=== PATIENT | male | born 1955 | race Caucasian/White ===

== ENCOUNTER 2017-11-09 13:41 | Emergency (ER) | payer BC ==
--- NOTE | 2017-11-09 14:33 | Emergency Department Record ---
History of Present Illness - General Chief Complaint: Syncope Stated Complaint: SYNCOPY Time Seen by Provider: 11/09/17 14:23 Source: Patient Mode of Arrival: Ambulatory - History of Present Illness Initial Comments: patient was sitting in a chair and talking on the phone about his heart valve surgery and and he felt funny and than passed out and no trauma and he was shaking and out for 30 seconds and than awake and he came in for evaluation. No pain no chest pain and no dyspnea no abdominal pain. sister said he had some shaking Onset/Timin -: Minutes(s) Prodromal Symptoms: Other Duration of Episode: 10 -: Second(s) - [place] Coma Scale Eye Response: (4) Open spontaneously Motor Response: (6) Obeys commands Verbal Response: (5) Oriented John Total: 15 - Related Data Home Medications Medication Instructions Recorded Confirmed Last Taken Atorvastatin Calcium [Lipitor] 80 mg PO DAILY 11/09/17 11/09/17 11/09/17 Carvedilol [Carvedilol] 1 tab PO DAILY 11/09/17 11/09/17 11/09/17 Ezetimibe [Ezetimibe] 1 tab PO DAILY 11/09/17 11/09/17 11/09/17 Lisinopril [Zestril] 5 mg PO DAILY 11/09/17 11/09/17 11/09/17 Allergies Allergy/AdvReac Type Severity Reaction Status Date / Time No Known Drug Allergies Allergy Verified 11/09/17 14:00 Travel Screening - Travel/Exposure Within Last 30 Days Have you traveled within the last 30 days?: No - Travel/Exposure Within Last Year Have you traveled outside the [place] in the last year?: Yes Location Detail:: [place] July 2017 - Additonal Travel Details Have you been exposed to anyone with a communicable illness?: No - Travel Symptoms Symptom Screening: None Review of Systems Reviewed: No additional complaints except as noted below Constitutional: Reports: As per HPI. Denies: Chills, Fever, Malaise, Night sweats, Weakness, Weight change Eyes: Reports: As per HPI. Denies: Eye discharge, Eye pain, Photophobia, Vision change ENT: Reports: As per HPI. Denies: Congestion, Dental pain, Ear pain, Epistaxis , Hearing loss, Throat pain Respiratory: Reports: As per HPI. Denies: Cough, Dyspnea, Hemoptysis, Stridor, Wheezes Cardiovascular: Reports: As per HPI. Denies: Arrhythmia, Chest pain, Dyspnea on exertion, Edema, Murmurs, Orthopnea, Palpitations, Paroxysmal nocturnal dyspnea, Rheumatic Fever, Syncope Endocrine: Reports: As per HPI. Denies: Fatigue, Heat or cold intolerance, Polydipsia, Polyuria Gastrointestinal: Reports: As per HPI. Denies: Abdominal pain, Constipation, Diarrhea, Hematemesis, Hematochezia, Melena, Nausea, Vomiting Genitourinary: Reports: As per HPI. Denies: Dysuria, Frequency, Hematuria, Incontinence, Retention, Testicular pain, Testicular mass, Urgency Musculoskeletal: Reports: As per HPI. Denies: Arthralgia, Back pain, Gout, Joint swelling, Myalgia, Neck pain Skin: Reports: As per HPI. Denies: Bruising, Change in color, Change in hair/ nails, Lesions, Pruritus, Rash Neurological: Reports: As per HPI. Denies: Abnormal gait, Confusion, Headache, Numbness, Paresthesias, Seizure, Tingling, Tremors, Vertigo, Weakness Psychiatric: Reports: As per HPI. Denies: Anxiety, Auditory hallucinations, Depression, Homicidal thoughts, Suicidal thoughts, Visual hallucinations Hematological/Lymphatic: Reports: As per HPI. Denies: Anemia, Blood Clots, Easy bleeding, Easy bruising, Swollen glands Past Medical History - SOCIAL HISTORY Smoking Status: Never smoker Alcohol Use: Rare Drug Use: None - RESPIRATORY Hx Respiratory Disorders: No - CARDIOVASCULAR Hx Cardio Disorders: Yes Hx Cardiac Cath: Yes Hx Heart Attack: Yes (2013) Hx Hypertension: Yes Comment:: stents - NEURO Hx Neuro Disorders: No - GI Hx GI Disorders: No - Hx Genitourinary Disorders: No - ENDOCRINE Hx Endocrine Disorders: No - MUSCULOSKELETAL Hx Musculoskeletal Disorders: No - PSYCH Hx Psych Problems: No - HEMATOLOGY/ONCOLOGY Hx Hematology/Oncology Disorders: No Family Medical History Any Significant Family History?: No Physical Exam - General General Appearance: Alert, Oriented x3, Cooperative, No acute distress - Head Head exam: Normal inspection - Eye Eye exam: Normal appearance, PERRL Pupils: Normal accommodation - ENT ENT exam: Normal exam, Mucous membranes moist, Normal external ear exam, Normal orophraynx, TM's normal bilaterally Ear exam: Normal external inspection. negative: External canal tenderness Nasal Exam: Normal inspection. negative: Discharge, Sinus tenderness Mouth exam: Normal external inspection, Tongue normal Teeth exam: Normal inspection. negative: Dental caries Throat exam: Normal inspection. negative: Tonsillar erythema, Tonsillar exudate - Neck Neck exam: Normal inspection, Full ROM. negative: Tenderness - Respiratory Respiratory exam: Normal lung sounds bilaterally. negative: Respiratory distress - Cardiovascular Cardiovascular Exam: Regular rate, Normal rhythm, Systolic murmur - GI/Abdominal GI/Abdominal exam: Soft, Normal bowel sounds. negative: Tenderness - Rectal Rectal exam: Deferred - exam: Deferred - Extremities Extremities exam: Normal inspection, Full ROM, Normal capillary refill. negative: Tenderness - Back Back exam: Reports: Normal inspection, Full ROM. Denies: Muscle spasm, Rash noted, Tenderness - Neurological Neurological exam: Alert, Normal gait, Oriented X3, Reflexes normal - Psychiatric Psychiatric exam: Normal affect, Normal mood - Skin Skin exam: Dry, Intact, Normal color, Warm Course Vital Signs 11/09/17 13:50 Temperature 98.7 F Pulse Rate 62 Respiratory 18 Rate Blood Pressure 172/102 Pulse Ox 98 - Reevaluation(s) Reevaluation #1: discussed case with Dr. Ailyn JONES cardiology and will transfer to [facility] 11/09/17 16:29 Medical Decision Making - Lab Data Result diagrams: 11/09/17 14:00 11/09/17 14:00 Disposition Clinical Impression: Syncope Qualifiers: Syncope type: unspecified Qualified Code(s): R55 - Syncope and collapse Disposition: Acute Care Hospital Transfer Condition: (2) Stable Forms: Patient Portal Access Time of Disposition: 16:29 Quality - Quality Measures Quality Measures: N/A - Blood Pressure Screening Does Patient Have Any of the Following: No Blood Pressure Classification: Hypertensive Reading Systolic Measurement: 172 Diastolic Measurement: 102 Screening for High Blood Pressure: < First Hypertensive BP, F/U Documented > [ G8950] First Hypertensive Follow-up Interventions: Referral to alternative/primary care provider.
[2017-11-09 14:55] LABS: BASO % 0.7 % (0-6); GRAN % 59.6 % (47-80); HEMATOCRIT 48.6 % (42.0-52.0); HEMOGLOBIN 16.6 gm/dl (14.0-18.0); LYMPH % 23.2 % (16-45); MEAN CORPUSCULAR HEMOGLOBIN 31.1 pg (27-33); MEAN CORPUSCULAR HGB CONC 34.2 g/dl (32-36); MEAN PLATELET VOLUME 10.3 fl (7.4-10.4); MONO % 12.5 % (0-9); PLATELET COUNT 260 K/uL (130-400); RED BLOOD COUNT 5.34 M/uL (4.40-5.70)
[2017-11-09 15:08] LABS: BLOOD UREA NITROGEN 16 mg/dL (8-23); CREATININE 0.7 mg/dL (0.7-1.2); EST GLOMERULAR FILTRATION RATE > 60 mL/min
[2017-11-09 15:11] LABS: GLUCOSE,RANDOM 103 mg/dL (74-109)
[2017-11-09 15:16] LABS: CKMB 5.4 ng/mL (<6.73)
--- NOTE | 2017-11-11 10:10 | CT SCAN REPORT ---
DATE: 11/09/2017 at 2:48 p.m. EXAM: HEAD CT. HISTORY: Syncope, possible seizure. TECHNIQUE: Axial CT scan of the head was performed without intravenous contrast. COMPARISON: None. FINDINGS: No definite acute intracranial hemorrhage identified. No focal mass effect or midline shift apparent. No definite acute infarct or intracranial mass lesion is seen. No depressed calvarial fracture is evident. Particularly if this represents a new onset of seizures, follow-up brain MRI may be useful for further evaluation if not contraindicated. Minor membrane thickening anteriorly in the inferior aspect of the left maxillary sinus. IMPRESSION: EMERGENCY NONCONTRAST HEAD CT APPEARS ESSENTIALLY NEGATIVE WITH NO DEFINITE ACUTE INTRACRANIAL HEMORRHAGE OR FOCAL MASS EFFECT IDENTIFIED. JOB NUMBER: [id number] [facility]
== END 2017-11-09 19:02 | disposition short-term general hospital (02) ==
LOC: ER 13:41
DX: R55 Syncope and collapse (principal); I10 Essential (primary) hypertension; I25.2 Old myocardial infarction
CPT/HCPCS: 70450; 80048; 82553; 83735; 84484; 85025; 85730; 99285

== ENCOUNTER 2018-07-01 09:35 | Emergency (ER) | payer BC ==
[2018-07-01] MEDS ORDERED: 0.9 % SODIUM CHLORIDE 1,000 ML BAG IV ONE (10:13)
[2018-07-01] MEDS ORDERED: ONDANSETRON HCL IV 4 MG/2 ML VIAL IV ONE (10:13)
--- NOTE | 2018-07-01 10:17 | Emergency Department Record ---
History of Present Illness - General Chief complaint: Rectal bleeding Stated complaint: RECTAL BLEEDING Time Seen by Provider: 07/01/18 10:06 Source: Patient Mode of Arrival: Ambulatory Limitations: No limitations - History of Present Illness Initial comments: The patient is here due to having cramping AP with frequent small diarrheal stools with a small amount of blood for the last 24 hours approximately. He has recently had mild nausea but no abdominal pain or vomiting or fevers. The bleeding is described as about a teaspoon of blood with the stools. The patient denies any dizziness or lightheadedness and has no hx of GI bleeding. MD complaint: Blood streaked stool Onset/Timin -: Hour(s) Radiation: Epigastric, Suprapubic Severity scale (1-10): 8 Quality: Cramping Consistency: Constant Associated Symptoms: Abdominal pain, Diarrhea, Nausea Treatments Prior to Arrival: OTC meds - Related Data Previous Rx's Medication Instructions Recorded Ciprofloxacin HCl [Cipro] 500 mg PO Q12HR #14 tablet 07/01/18 Metronidazole [Flagyl] 500 mg PO TID #21 tablet 07/01/18 Ondansetron [Zofran Odt] 4 mg SL .Q4-6H PRN #12 tab.rapdis 07/01/18 Allergies Allergy/AdvReac Type Severity Reaction Status Date / Time No Known Drug Allergies Allergy Verified 11/09/17 14:00 Travel Screening - Travel/Exposure Within Last 30 Days Have you traveled within the last 30 days?: No - Travel/Exposure Within Last Year Have you traveled outside the [place] in the last year?: No - Additonal Travel Details Have you been exposed to anyone with a communicable illness?: No - Travel Symptoms Symptom Screening: None Review of Systems Constitutional: Denies: Chills, Fever Eyes: Denies: Eye discharge ENT: Denies: Congestion Respiratory: Denies: Cough, Dyspnea Cardiovascular: Denies: Arrhythmia Endocrine: Denies: Fatigue Gastrointestinal: Reports: Diarrhea, Hematochezia, Nausea. Denies: Abdominal pain, Vomiting Genitourinary: Denies: Dysuria Musculoskeletal: Denies: Arthralgia Skin: Denies: Bruising Past Medical History - SOCIAL HISTORY Smoking Status: Never smoker Alcohol Use: Rare Drug Use: None - RESPIRATORY Hx Respiratory Disorders: No - CARDIOVASCULAR Hx Cardio Disorders: Yes Hx Cardiac Cath: Yes Hx Heart Attack: Yes (2013) Hx Hypertension: Yes Comment:: stents - NEURO Hx Neuro Disorders: No - GI Hx GI Disorders: No - Hx Genitourinary Disorders: No - ENDOCRINE Hx Endocrine Disorders: No - MUSCULOSKELETAL Hx Musculoskeletal Disorders: No - PSYCH Hx Psych Problems: No - HEMATOLOGY/ONCOLOGY Hx Hematology/Oncology Disorders: No Family Medical History Any Significant Family History?: No Physical Exam - General General Appearance: Alert, Oriented x3, Cooperative, No acute distress - Head Head exam: Atraumatic, Normocephalic, Normal inspection - Eye Eye exam: Normal appearance, PERRL - ENT Throat exam: Normal inspection. negative: Tonsillar erythema, Tonsillar exudate - Neck Neck exam: Normal inspection, Full ROM. negative: Tenderness - Respiratory Respiratory exam: Normal lung sounds bilaterally. negative: Respiratory distress - Cardiovascular Cardiovascular Exam: Regular rate, Normal rhythm, Normal heart sounds - GI/Abdominal GI/Abdominal exam: Soft, Normal bowel sounds. negative: Tenderness - Rectal Rectal exam: Heme (+) stool, Normal inspection, Normal rectal tone. negative: Prostate enlargement, Prostate tenderness - Extremities Extremities exam: Normal inspection. negative: Pedal edema - Back Back exam: Reports: Normal inspection - Neurological Neurological exam: Alert, Normal gait. negative: Abnormal gait, Motor sensory deficit Course Vital Signs 07/01/18 09:48 Temperature 97.9 F Pulse Rate 94 H Respiratory 24 Rate Blood Pressure 182/125 Pulse Ox 99 - Reevaluation(s) Reevaluation #1: The patient is doing a lot better at this time. His pain is almost gone and he is no longer having any bright red bleeding with his stools. 07/01/18 12:04 Reevaluation #2: The patient is doing very well at this time. His pain is gone and he states he is no longer bleeding. I did explain to him the need to stay in the hospital for IV Abx's and monitoring but he is refusing that plan. I explained to him that by leaving his colitis could get worse and he could bleed worse and develop a worsening colon infection, sepsis, become disabled and even . The patient understands and accepts the risks. He presently has proper decision making capacity and is competent to refuse. 07/01/18 13:09 Reevaluation #3: The patient is doing well and denies any pain or discomfort. He again is refusing to stay in the hospital overnight. I did discuss the case with Dr. Garcia and he can see the patient in the office in 1 or 2 days. We also are trying to set the patient up for an appointment in the [facility] for . 07/01/18 13:40 Medical Decision Making - Data Complexity MDM Data: Labs Ordered and/or Reviewed, X-Ray Ordered and/or Reviewed - Lab Data Result diagrams: 07/01/18 10:07 07/01/18 10:07 - Radiology Data Radiology results: Report reviewed (CT: Long segment of circumferential wall thickening with inflammatory fat stranding from distal transverse colon to rectum. Nonspecific colitis, Poss inflammatory vs infectious.) Disposition Disposition: Discharge Clinical Impression: Colitis Disposition: Against Medical Advice Condition: (2) Stable Instructions: Colitis (ED) Additional Instructions: Please drink plenty of fluids and eat a very bland diet. Use Zofran for nausea and take Tylenol for pain. Take Cipro and Flagyl as directed and see Dr. Garcia tomorrow for recheck and Dr. Kwok in the [facility] on . Return to the ER for any worsening symptoms of pain, bleeding, or any fever. Prescriptions: Ciprofloxacin HCl [Cipro] 500 mg PO Q12HR #14 tablet Metronidazole [Flagyl] 500 mg PO TID #21 tablet Ondansetron [Zofran Odt] 4 mg SL .Q4-6H PRN #12 tab.rapdis PRN Reason: Nausea Referrals: [facility] [Provider Group] Forms: Patient Portal Access Time of Disposition: 13:45 Quality - Quality Measures Quality Measures: N/A - Blood Pressure Screening View Details: Yes Does Patient Have Any of the Following: Active Dx of HTN Blood Pressure Classification: Hypertensive Reading Systolic Measurement: 141 Diastolic Measurement: 98 Screening for High Blood Pressure: Patient Exclusion, Hx of HTN [G9744]
[2018-07-01 10:47] LABS: BASO % 0.3 % (0-6); EOS % 1.6 % (0-6); GRAN % 76.6 % (47-80); HEMATOCRIT 51.4 % (42.0-52.0); HEMOGLOBIN 17.3 gm/dl (14.0-18.0); LYMPH % 13.4 % (16-45); MEAN CORPUSCULAR HEMOGLOBIN 30.6 pg (27-33); MEAN CORPUSCULAR HGB CONC 33.7 g/dl (32-36); MEAN PLATELET VOLUME 10.3 fl (7.4-10.4); MONO % 8.1 % (0-9); PLATELET COUNT 295 K/uL (130-400); RED BLOOD COUNT 5.65 M/uL (4.40-5.70); RED CELL DISTRIBUTION WIDTH 14.1 % (11.5-14.5); WHITE BLOOD COUNT W/O DIFF 9.3 K/uL (4.2-12.2)
[2018-07-01] MEDS ORDERED: MAGNESIUM HYDROXIDE/AL HYDROX 30 ML, LIDOCAINE VISC 2% 15ML 15 ML PO ONE ×2 (11:03)
[2018-07-01 11:05] LABS: BLOOD UREA NITROGEN 14 mg/dL (8-23); EST GLOMERULAR FILTRATION RATE > 60 mL/min
[2018-07-01 11:06] LABS: TOTAL PROTEIN 7.1 g/dL (6.6-8.7)
[2018-07-01 11:08] LABS: GLUCOSE,RANDOM 135 mg/dL (74-109)
[2018-07-01 11:11] LABS: ALBUMIN 4.7 g/dL (4.0-5.0); ALKALINE PHOSPHATASE 93 U/L (40-129); ALT/SGPT 21 U/L (<41); AST/SGOT 19 U/L (10.0-50.0); LIPASE 218 U/L (13-60)
[2018-07-01 11:22] LABS: BILIRUBIN,DIRECT < 0.2 mg/dL (0-0.3)
[2018-07-01] MEDS ORDERED: ERTAPENEM SODIUM 1 G in 0.9 % SODIUM CHLORIDE 100ML 100 ML IVPB ONE (13:00)
--- NOTE | 2018-07-02 08:39 | CT SCAN REPORT ---
EXAM: CT OF THE ABDOMEN AND PELVIS WITH CONTRAST HISTORY: SEVERE ABDOMINAL PAIN, RECTAL BLEEDING. TECHNIQUE: CT of the abdomen and pelvis with 100 ml Omnipaque 300 intravenous contrast and oral contrast was provided. Comparison: Abdomen ultrasound 01/21/13. FINDINGS: The visualized lung bases are clear. Unremarkable appearance of the liver, gallbladder, spleen, adrenal glands, and pancreas. Symmetric renal perfusion. No hydronephrosis. Long segment of circumferential colonic wall thickening extending from the distal transverse colon to the rectum. Oral contrast material extends to the level of the rectum. Somewhat rounded hyperdense material within a segment of jejunum in the left mid abdomen (series 3 image 91, series 601 image 48) measuring up to 15 mm. No free air or free fluid. The small bowel loops are nondilated. Aortoiliac arterial axis is calcified and tortuous without evidence of aneurysm or dissection. Moderate sized hiatal hernia. Coarse calcifications in the prostate. The urinary bladder is mildly distended without significant abnormality appreciable by CT. Near complete disk space height loss at L5-S1. Grade 1 L5-S1 anterolisthesis with bilateral L5 pars defects. IMPRESSION: 1. LONG SEGMENT OF CIRCUMFERENTIAL COLONIC THICKENING EXTENDING FROM THE DISTAL TRANSVERSE COLON TO THE RECTUM, SUGGESTIVE OF NONSPECIFIC COLITIS FAVORING EITHER INFLAMMATORY OR INFECTIOUS ETIOLOGIES. 2. NONSPECIFIC ROUNDED HYPERDENSITY WITHIN A SEGMENT OF JEJUNUM IN THE LEFT ABDOMEN MEASURING UP TO 15 MM; MOST LIKELY REPRESENTS FOCAL POOLING OF ORAL CONTRAST MATERIAL, WITH A SMALL INTESTINE POLYP NOT EXCLUDED. 3. MODERATE SIZED HIATAL HERNIA. 4. ADDITIONAL INCIDENTAL AND CHRONIC FINDINGS, DESCRIBED IN THE BODY OF THE REPORT. JOB NUMBER: [id number] [facility]
== END 2018-07-01 14:14 | disposition left against medical advice (07) ==
LOC: ER 09:35
DX: K52.9 Noninfective gastroenteritis and colitis, unspecified (principal); R10.9 Unspecified abdominal pain; R11.0 Nausea; I10 Essential (primary) hypertension; I25.2 Old myocardial infarction
CPT/HCPCS: 99284 ×2; 96374; 96361; 83690; 85025; 85651; 80076; 86140; 80048; 74177; Q9967; J1335; J2405; J7030

== ENCOUNTER 2018-09-27 07:02 | Day surgery (SDC) | payer BC ==
[2018-09-27] MEDS ORDERED: LIDOCAINE 2% MDV (20MG/ML) 20ML VIAL IV ONE (07:03)
[2018-09-27] MEDS ORDERED: PROPOFOL 10 MG/ML VIAL IV ONE (07:03)
--- NOTE | 2018-09-30 08:20 | Operative Note ---
DATE OF SURGERY: 09/27/2018 SURGEON: Trevor Morris MD OPERATION: COLONOSCOPY. INDICATIONS: This is a 63-year-old male with history of colon polyps. Last colonoscopy was about 5 years ago. He presented for surveillance colonoscopy. POSTOPERATIVE DIAGNOSIS: Suboptimal bowel preparation precluding complete evaluation of the colonic mucosal surfaces. There were no gross lesions noted. ANESTHESIA: Sedation is per Anesthesia. Pulse oximetry was monitored throughout the procedure to maintain O2 saturation of 90% or greater. Supplemental oxygen was administered via nasal cannula. Cardiac and vital signs were monitored throughout the duration of the procedure, and they were stable. The procedure of colonoscopy and risks and alternatives of the procedure, including the risk of bleeding and perforation, among others, were explained to the patient who voiced understanding and agreed to have the procedure done. Physical examination was performed, and the patient was found stable for sedation. PROCEDURE: The patient was placed in the left lateral position. Sedation was initiated. A digital rectal exam was performed and showed some mild external hemorrhoids with no palpable rectal masses. An Olympus PCF-180AL colonoscope was then inserted into the rectum under direct visualization. It was advanced to the cecum without difficulty. The ileocecal valve and appendiceal orifice were identified and photographed. The colonic mucosa was carefully examined upon introduction of the colonoscope. There were no gross lesions noted. The bowel preparation was, however, suboptimal and cannot exclude any small lesions. The colonoscope was then withdrawn while carefully examining the colonic mucosal surfaces. No other lesions were noted. In the rectum, retroflexion was performed and grade 1 internal hemorrhoids were noted. The colonoscope was then withdrawn and the procedure was terminated. The patient tolerated the procedure well without any immediate complications. The patient remained with stable vital signs and was transferred to the recovery room. RECOMMENDATIONS: 1. The patient should be on a high-fiber diet. 2. The patient is to have a repeat colonoscopy in 3 years because of the suboptimal bowel preparation. Thank you for allowing me to participate in the care of your patient. CC: DO NATHAN Acevedo
== END 2018-09-27 09:10 | disposition home or self-care (01) ==
LOC: HOP 07:02
PROVIDERS: ATTEND Internal Medicine Gastroenterology
DX: Z12.11 Encounter for screening for malignant neoplasm of colon (principal); Z86.010 Personal history of colon polyps; I10 Essential (primary) hypertension; E78.00 Pure hypercholesterolemia, unspecified
CPT/HCPCS: 00812; G0105